=== PATIENT | female | born 1960 ===

== ENCOUNTER 2019-10-30 11:36 | Inpatient (IN) | payer OTHER ==
[~2019-10-30] VITALS: Ht 162.6 cm; Wt 82.7 kg
[2019-10-30 17:15] VITALS: BP 149/90
[2019-10-30] MEDS ORDERED: TEMAZEPAM 15 MG CAPSULE PO PRN (19:00)
[2019-10-30] MEDS ORDERED: HYDROmorphone 2 MG/ML, 1ML IVPush PRN (19:00)
[2019-10-30] MEDS ORDERED: ONDANSETRON 2MG/ML, 2ML IVPush PRN (19:00)
[2019-10-30] MEDS ORDERED: ENALAPRILAT 1.25 MG/ML, 2ML IVPush PRN (19:00)
[2019-10-30] MEDS ORDERED: ACETAMINOPHEN 325 MG TABLET PO PRN (19:00)
[2019-10-30] MEDS ORDERED: POLYETHYLENE GLYCOL 17 GM PACKET PO PRN (19:00)
[2019-10-30] MEDS ORDERED: BISACODYL 10 MG SUPP PR PRN (19:00)
[2019-10-30] MEDS: PLEASE ENTER HEIGHT AND WEIGHT MC SCH ×2 (19:30→22:20)
[2019-10-30] MEDS: PLEASE ENTER ALLERGIES MC SCH ×4 (19:30→22:20)
[2019-10-30 20:00] VITALS: BP 149/90
[2019-10-30] MEDS: [UNRECOGNIZED DRUG - REMARK] MC SCH ×2 (22:00→22:20)
[2019-10-30] MEDS: ERTAPENEM 1 GM in SODIUM CHLORIDE 0.9% 50 ML IV SCH (23:22)
[2019-10-30] MEDS: HEPARIN 5,000 UNITS/ML, 1ML SQ SCH (23:23)
[2019-10-30] MEDS: OXYcodone IR 5MG TABLET PO PRN (23:25)
[2019-10-31 01:55] VITALS: BP 139/78
[2019-10-31] MEDS: LEVOTHYROXINE 88 MCG TABLET PO SCH (05:39)
[2019-10-31 05:46] LABS: BASOPHILS # (AUTO) 0.04 x10^3/uL (0-0.1); BASOPHILS % (AUTO) 1 % (0-1); EOSINOPHILS # (AUTO) 0.73 x10^3/uL (0-0.4); EOSINOPHILS % (AUTO) 9 % (1-7); LYMPHOCYTES # (AUTO) 2.86 x10^3/uL (1-3.4); LYMPHOCYTES % (AUTO) 36 % (22-44); MD NO; MEAN CORPUSCULAR HEMOGLOBIN 28.2 pg (27.0-34.8); MEAN CORPUSCULAR HGB CONC 32.5 g/dL (32.4-35.8); MEAN PLATELET VOLUME 8.7 fL (7.4-10.4); MONOCYTES # (AUTO) 0.92 x10^3/uL (0.2-0.8); MONOCYTES % (AUTO) 12 % (2-9); NEUTROPHILS # (AUTO) 3.38 x10^3/uL (1.8-6.8); NEUTROPHILS % (AUTO) 43 % (42-75); PLATELET COUNT 244 x10^3/uL (130-400); RED CELL DISTRIBUTION WIDTH 14.1 % (9.6-15.2)
[2019-10-31 05:55] LABS: ALANINE AMINOTRANSFERASE 484 U/L (12-78); ALBUMIN 2.8 g/dL (3.4-5.0); ANION GAP 7 mmol/L (5-15); CALCIUM 8.2 mg/dL (8.5-10.1); CHLORIDE 111 mmol/L (98-107); CREATININE 0.61 mg/dL (0.55-1.02)
[2019-10-31 05:57] LABS: ALKALINE PHOSPHATASE 450 U/L (45-117); BILIRUBIN,TOTAL 1.1 mg/dL (0.2-1.0); TOTAL PROTEIN 6.3 g/dL (6.4-8.2)
[2019-10-31] MEDS: HEPARIN 5,000 UNITS/ML, 1ML SQ SCH ×3 (07:00→23:00)
[2019-10-31] MEDS: SENNA/DOCUSATE TABLET PO SCH (07:29)
[2019-10-31] MEDS: POTASSIUM CHLORIDE 20 MEQ TAB.ER.PRT PO SCH ×2 (10:09→17:12)
[2019-10-31 10:12] VITALS: BP 112/78
[2019-10-31 14:59] VITALS: BP 140/78
[2019-10-31 20:00] VITALS: BP 116/73
[2019-10-31] MEDS: ERTAPENEM 1 GM in SODIUM CHLORIDE 0.9% 50 ML IV SCH (23:29)
[2019-11-01 01:30] VITALS: BP 120/78
[2019-11-01] MEDS: HEPARIN 5,000 UNITS/ML, 1ML SQ SCH ×3 (05:09→22:10)
[2019-11-01] MEDS: LEVOTHYROXINE 88 MCG TABLET PO SCH (05:09)
[2019-11-01 05:21] LABS: ALBUMIN 2.9 g/dL (3.4-5.0); ANION GAP 8 mmol/L (5-15); CALCIUM 8.5 mg/dL (8.5-10.1); CHLORIDE 111 mmol/L (98-107)
[2019-11-01 05:24] LABS: ALANINE AMINOTRANSFERASE 366 U/L (12-78); ALKALINE PHOSPHATASE 397 U/L (45-117); BILIRUBIN,TOTAL 0.8 mg/dL (0.2-1.0); CREATININE 0.68 mg/dL (0.55-1.02); TOTAL PROTEIN 6.5 g/dL (6.4-8.2)
[2019-11-01] MEDS: POTASSIUM CHLORIDE 20 MEQ TAB.ER.PRT PO SCH ×2 (08:00→09:22)
[2019-11-01] MEDS: SENNA/DOCUSATE TABLET PO SCH (09:22)
[2019-11-01 09:24] VITALS: BP 118/75
[2019-11-01 12:23] VITALS: BP 123/78
[2019-11-01] MEDS: OXYcodone IR 5MG TABLET PO PRN (15:20)
[2019-11-01] MEDS: MELATONIN 5 MG TABLET PO PRN (21:02)
[2019-11-01 21:28] VITALS: BP 122/78
[2019-11-02 02:00] VITALS: BP 115/75
[2019-11-02] MEDS: LEVOTHYROXINE 88 MCG TABLET PO SCH (05:36)
[2019-11-02] MEDS: HEPARIN 5,000 UNITS/ML, 1ML SQ SCH ×4 (06:31→22:08)
[2019-11-02 06:42] LABS: ALANINE AMINOTRANSFERASE 273 U/L (12-78); ALBUMIN 2.9 g/dL (3.4-5.0); ANION GAP 7 mmol/L (5-15); CALCIUM 8.8 mg/dL (8.5-10.1); CHLORIDE 111 mmol/L (98-107); CREATININE 0.72 mg/dL (0.55-1.02)
[2019-11-02 06:44] LABS: ALKALINE PHOSPHATASE 353 U/L (45-117); BILIRUBIN,TOTAL 0.8 mg/dL (0.2-1.0); TOTAL PROTEIN 6.6 g/dL (6.4-8.2)
[2019-11-02 07:01] VITALS: BP 119/79
[2019-11-02] MEDS ORDERED: PANTOPRAZOLE GRAN. PKT 40 MG ONE (08:50)
[2019-11-02] MEDS: POTASSIUM CHLORIDE 20 MEQ TAB.ER.PRT PO SCH (08:53)
[2019-11-02] MEDS: SENNA/DOCUSATE TABLET PO SCH (08:53)
[2019-11-02] MEDS: PANTOPRAZOLE 40MG TABLET PO SCH (08:54)
[2019-11-02] MEDS ORDERED: FENTANYL PF 100 MCG/2ML ONE (11:39)
[2019-11-02] MEDS ORDERED: DEXAMETHASONE 4 MG/ML, 1ML ONE (11:40)
[2019-11-02] MEDS ORDERED: METOPROLOL 1 MG/ML, 5ML ONE (11:40)
[2019-11-02] MEDS ORDERED: SUCCINYLCHOLINE 20 MG/ML, 10ML ONE (11:40)
[2019-11-02] MEDS ORDERED: ONDANSETRON 2MG/ML, 2ML ONE (11:40)
[2019-11-02] MEDS ORDERED: PROPOFOL 10 MG/ML, 20ML ONE (11:40)
[2019-11-02] MEDS ORDERED: INDOMETHACIN 50 MG SUPP.RECT ONE (13:19)
[2019-11-02] MEDS ORDERED: PROMETHAZINE 25 MG/ML, 1ML ONE (13:25)
[2019-11-02] MEDS ORDERED: OXYcodone 5 MG/5 ML ORAL.SOL UDC ONE (13:28)
[2019-11-02] MEDS ORDERED: PROMETHAZINE 25 MG/ML, 1ML IV PRN (13:30)
[2019-11-02] MEDS ORDERED: HYDROmorphone 2 MG/ML, 1ML IVPush PRN (13:30)
[2019-11-02] MEDS ORDERED: MEPERIDINE/PF 25MG/0.5ML IVPush PRN (13:30)
[2019-11-02] MEDS ORDERED: hydrALAzine 20 MG/ML, 1ML IV PRN (13:30)
[2019-11-02] MEDS ORDERED: OXYcodone 5 MG/5 ML ORAL.SOL UDC PO PRN (13:30)
[2019-11-02] MEDS ORDERED: DIAZEPAM 5 MG/ML, 2ML IVPush PRN (13:30)
[2019-11-02] MEDS ORDERED: ACETAMINOPHEN 325 MG TABLET PO PRN (13:30)
[2019-11-02] MEDS ORDERED: ALBUTEROL SULFATE 2.5 MG/3 ML NPPB PRN (13:30)
[2019-11-02] MEDS ORDERED: FENTANYL PF 100 MCG/2ML IV PRN (13:30)
[2019-11-02] MEDS ORDERED: INDOMETHACIN 50 MG SUPP.RECT PR ONE (13:30)
[2019-11-02] MEDS ORDERED: KETOROLAC 30 MG/1 ML IV PRN (13:30)
[2019-11-02] MEDS ORDERED: LABETALOL 5MG/ML, 20ML IV PRN (13:30)
[2019-11-02] MEDS ORDERED: HYDROmorphone 1 MG/ML, 1ML INJ ONE (13:48)
[2019-11-02] MEDS: LABETALOL 5MG/ML, 20ML IVPush PRN ×2 (13:58→15:20)
[2019-11-02] MEDS ORDERED: OMNIPAQUE 350 MG/ML, 50 ML BOTTLE ONE (14:34)
[2019-11-02 15:12] VITALS: BP 183/90
[2019-11-02] MEDS ORDERED: HYDROmorphone 2 MG/ML, 1ML ONE ×2 (15:43→22:04)
[2019-11-02 15:45] VITALS: BP 168/92
[2019-11-02 16:00] VITALS: BP 169/91
[2019-11-02] MEDS ORDERED: HYDROmorphone 1 MG/ML, 1ML INJ IV PRN (16:00)
[2019-11-02 18:49] VITALS: BP 120/73
[2019-11-02] MEDS: OXYcodone IR 5MG TABLET PO PRN (22:18)
[2019-11-03] MEDS: MELATONIN 5 MG TABLET PO PRN ×2 (00:53→22:43)
[2019-11-03 03:28] VITALS: BP 112/76
[2019-11-03 05:10] LABS: BASOPHILS # (AUTO) 0.03 x10^3/uL (0-0.1); BASOPHILS % (AUTO) 0 % (0-1); EOSINOPHILS # (AUTO) 0.03 x10^3/uL (0-0.4); EOSINOPHILS % (AUTO) 0 % (1-7); LYMPHOCYTES # (AUTO) 1.89 x10^3/uL (1-3.4); LYMPHOCYTES % (AUTO) 18 % (22-44); MD NO; MEAN CORPUSCULAR HEMOGLOBIN 28.1 pg (27.0-34.8); MEAN CORPUSCULAR HGB CONC 32.5 g/dL (32.4-35.8); MEAN CORPUSCULAR VOLUME 86.5 fL (80-100); MEAN PLATELET VOLUME 9.1 fL (7.4-10.4); MONOCYTES # (AUTO) 0.88 x10^3/uL (0.2-0.8); MONOCYTES % (AUTO) 9 % (2-9); NEUTROPHILS # (AUTO) 7.53 x10^3/uL (1.8-6.8); NEUTROPHILS % (AUTO) 73 % (42-75); PLATELET COUNT 234 x10^3/uL (130-400); RED BLOOD COUNT 4.93 x10^6/uL (3.82-5.3); RED CELL DISTRIBUTION WIDTH 14.5 % (9.6-15.2)
[2019-11-03 05:13] LABS: CHLORIDE 107 mmol/L (98-107)
[2019-11-03 05:20] LABS: ALANINE AMINOTRANSFERASE 238 U/L (12-78); ALBUMIN 3.2 g/dL (3.4-5.0); ALKALINE PHOSPHATASE 489 U/L (45-117); ANION GAP 9 mmol/L (5-15); BILIRUBIN,TOTAL 0.9 mg/dL (0.2-1.0); C-REACTIVE PROTEIN, QUANT 0.39 mg/dL (0.02-0.49); CALCIUM 9.2 mg/dL (8.5-10.1); CREATININE 0.61 mg/dL (0.55-1.02); TOTAL PROTEIN 7.1 g/dL (6.4-8.2)
[2019-11-03] MEDS: LEVOTHYROXINE 88 MCG TABLET PO SCH (06:19)
[2019-11-03 06:33] LABS: HCT (SEDRATE) 42.7 % (34.6-47.8)
[2019-11-03] MEDS: OXYcodone IR 5MG TABLET PO PRN ×4 (06:41→22:43)
[2019-11-03] MEDS: PANTOPRAZOLE 40MG TABLET PO SCH (06:41)
[2019-11-03] MEDS: HEPARIN 5,000 UNITS/ML, 1ML SQ SCH ×3 (07:00→21:33)
[2019-11-03 07:50] VITALS: BP 99/57
[2019-11-03] MEDS: SENNA/DOCUSATE TABLET PO SCH (08:25)
[2019-11-03] MEDS: POTASSIUM CHLORIDE 20 MEQ TAB.ER.PRT PO SCH (08:25)
[2019-11-03 13:28] VITALS: BP 110/73
[2019-11-03 19:29] VITALS: BP 109/73
[2019-11-04 01:17] VITALS: BP 115/72
[2019-11-04 05:22] LABS: BASOPHILS # (AUTO) 0.06 x10^3/uL (0-0.1); BASOPHILS % (AUTO) 1 % (0-1); EOSINOPHILS # (AUTO) 1.19 x10^3/uL (0-0.4); EOSINOPHILS % (AUTO) 10 % (1-7); LYMPHOCYTES # (AUTO) 4.24 x10^3/uL (1-3.4); LYMPHOCYTES % (AUTO) 35 % (22-44); MD NO; MEAN CORPUSCULAR HEMOGLOBIN 27.9 pg (27.0-34.8); MEAN CORPUSCULAR HGB CONC 31.9 g/dL (32.4-35.8); MEAN CORPUSCULAR VOLUME 87.4 fL (80-100); MEAN PLATELET VOLUME 9.4 fL (7.4-10.4); MONOCYTES # (AUTO) 1.14 x10^3/uL (0.2-0.8); MONOCYTES % (AUTO) 10 % (2-9); NEUTROPHILS # (AUTO) 5.41 x10^3/uL (1.8-6.8); NEUTROPHILS % (AUTO) 45 % (42-75); PLATELET COUNT 236 x10^3/uL (130-400); RED BLOOD COUNT 4.74 x10^6/uL (3.82-5.3); RED CELL DISTRIBUTION WIDTH 14.6 % (9.6-15.2)
[2019-11-04 05:38] LABS: ALBUMIN 3.2 g/dL (3.4-5.0); CALCIUM 8.9 mg/dL (8.5-10.1); CHLORIDE 109 mmol/L (98-107)
[2019-11-04 05:43] LABS: ALANINE AMINOTRANSFERASE 184 U/L (12-78); ALKALINE PHOSPHATASE 398 U/L (45-117); ANION GAP 7 mmol/L (5-15); BILIRUBIN,TOTAL 0.8 mg/dL (0.2-1.0); CREATININE 0.88 mg/dL (0.55-1.02); TOTAL PROTEIN 6.8 g/dL (6.4-8.2)
[2019-11-04] MEDS: PANTOPRAZOLE 40MG TABLET PO SCH (05:53)
[2019-11-04] MEDS: LEVOTHYROXINE 88 MCG TABLET PO SCH (05:53)
[2019-11-04] MEDS: OXYcodone IR 5MG TABLET PO PRN ×2 (05:56→20:39)
[2019-11-04] MEDS: LEVOFLOXACIN/PMX 750MG/150ML 150 ML IV SCH ×3 (07:00→10:31)
[2019-11-04] MEDS: METRONIDAZOLE PMX 500MG/100ML 100 ML IV SCH ×3 (07:00→20:39)
[2019-11-04 07:51] VITALS: BP 109/69
[2019-11-04] MEDS: POTASSIUM CHLORIDE 20 MEQ TAB.ER.PRT PO SCH (08:08)
[2019-11-04] MEDS: SENNA/DOCUSATE TABLET PO SCH (08:08)
[2019-11-04] MEDS: HEPARIN 5,000 UNITS/ML, 1ML SQ SCH ×3 (08:08→20:59)
[2019-11-04 12:53] VITALS: BP 114/74
[2019-11-04 19:18] VITALS: BP 142/80
[2019-11-04] MEDS: MELATONIN 5 MG TABLET PO PRN (20:39)
[2019-11-05 00:28] VITALS: BP 128/83
[2019-11-05] MEDS: METRONIDAZOLE PMX 500MG/100ML 100 ML IV SCH ×3 (04:30→20:03)
[2019-11-05] MEDS: PANTOPRAZOLE 40MG TABLET PO SCH (06:16)
[2019-11-05] MEDS: LEVOTHYROXINE 88 MCG TABLET PO SCH (06:16)
[2019-11-05 06:43] VITALS: BP 121/77
[2019-11-05] MEDS: HEPARIN 5,000 UNITS/ML, 1ML SQ SCH ×3 (07:00→22:29)
[2019-11-05] MEDS: OXYcodone IR 5MG TABLET PO PRN ×2 (07:39→15:06)
[2019-11-05] MEDS: SENNA/DOCUSATE TABLET PO SCH (07:40)
[2019-11-05] MEDS: LEVOFLOXACIN/PMX 750MG/150ML 150 ML IV SCH (10:20)
[2019-11-05 13:18] VITALS: BP 97/64
[2019-11-05] MEDS: MELATONIN 5 MG TABLET PO PRN (18:40)
[2019-11-05 19:17] VITALS: BP 120/81
[2019-11-06 00:22] VITALS: BP 95/63
[2019-11-06] MEDS: OXYcodone IR 5MG TABLET PO PRN (00:47)
[2019-11-06] MEDS: METRONIDAZOLE PMX 500MG/100ML 100 ML IV SCH (03:59)
[2019-11-06] MEDS: PANTOPRAZOLE 40MG TABLET PO SCH (05:33)
[2019-11-06] MEDS: LEVOTHYROXINE 88 MCG TABLET PO SCH (05:33)
[2019-11-06] MEDS: HEPARIN 5,000 UNITS/ML, 1ML SQ SCH (05:33)
[2019-11-06 06:55] LABS: BASOPHILS # (AUTO) 0.05 x10^3/uL (0-0.1); BASOPHILS % (AUTO) 1 % (0-1); EOSINOPHILS # (AUTO) 0.76 x10^3/uL (0-0.4); EOSINOPHILS % (AUTO) 10 % (1-7); LYMPHOCYTES # (AUTO) 2.56 x10^3/uL (1-3.4); LYMPHOCYTES % (AUTO) 35 % (22-44); MD NO; MEAN CORPUSCULAR HEMOGLOBIN 27.9 pg (27.0-34.8); MEAN CORPUSCULAR HGB CONC 32.1 g/dL (32.4-35.8); MEAN CORPUSCULAR VOLUME 86.8 fL (80-100); MEAN PLATELET VOLUME 8.9 fL (7.4-10.4); MONOCYTES # (AUTO) 0.91 x10^3/uL (0.2-0.8); MONOCYTES % (AUTO) 12 % (2-9); NEUTROPHILS # (AUTO) 3.05 x10^3/uL (1.8-6.8); NEUTROPHILS % (AUTO) 42 % (42-75); PLATELET COUNT 219 x10^3/uL (130-400); RED BLOOD COUNT 4.76 x10^6/uL (3.82-5.3); RED CELL DISTRIBUTION WIDTH 14.5 % (9.6-15.2)
[2019-11-06 07:07] LABS: CHLORIDE 108 mmol/L (98-107)
[2019-11-06 07:15] LABS: ALANINE AMINOTRANSFERASE 96 U/L (12-78); ALBUMIN 2.9 g/dL (3.4-5.0); ALKALINE PHOSPHATASE 260 U/L (45-117); ANION GAP 8 mmol/L (5-15); BILIRUBIN,TOTAL 0.6 mg/dL (0.2-1.0); CREATININE 0.78 mg/dL (0.55-1.02); TOTAL PROTEIN 6.3 g/dL (6.4-8.2)
[2019-11-06 08:24] VITALS: BP 106/60
[2019-11-06] MEDS: SENNA/DOCUSATE TABLET PO SCH (08:38)
[2019-11-06] MEDS ORDERED: OXYC5TAB3 PO (09:42)
[2019-11-06] MEDS ORDERED: LEVO88TA2 PO (09:42)
[2019-11-06] MEDS ORDERED: PANT40TA5 PO (09:42)
[2019-11-06] MEDS ORDERED: SENN-193 PO (09:42)
[2019-11-06] MEDS ORDERED: LEVO750T6 PO (09:42)
[2019-11-06] MEDS ORDERED: METR-90 PO (09:42)
[2019-11-06] MEDS: LEVOFLOXACIN/PMX 750MG/150ML 150 ML IV SCH (10:30)
== END 2019-11-06 12:53 | disposition home or self-care (01) | DRG 439 ==
LOC: 3N 17:06
PROVIDERS: ADMIT Hospitalist; ATTEND Hospitalist
PROC: 0F7D8DZ Dilation of Pancreatic Duct with Intraluminal Device, Via Natural or Artificial Opening Endoscopic (ICD-10-PCS; principal; 2019-11-02 12:00)
DX: K85.10 Biliary acute pancreatitis without necrosis or infection (principal); R17 Unspecified jaundice; K83.8 Other specified diseases of biliary tract; E87.6 Hypokalemia; E03.9 Hypothyroidism, unspecified; E78.5 Hyperlipidemia, unspecified; G43.909 Migraine, unspecified, not intractable, without status migrainosus; Z79.899 Other long term (current) drug therapy; Z80.0 Family history of malignant neoplasm of digestive organs; Z88.0 Allergy status to penicillin; Z90.49 Acquired absence of other specified parts of digestive tract; Z90.710 Acquired absence of both cervix and uterus; Z88.8 Allergy status to other drugs, medicaments and biological substances
CPT/HCPCS: 36415; 74181; 74328; 78226; 80053; 83690; 84443; 85025; 85651; 86140; G0378; J1100; J1170; J1335; J1644; J1956; J2405; J2550; J2704; J3010; Q9967; A9537; C1769; C1894; C2625; C9898; J0330